=== PATIENT | male | born 1950 | race African-American/Black ===

== ENCOUNTER 2017-05-25 00:24 | Inpatient (IN) | payer MEDICARE ==
[2017-05-25] MEDS ORDERED: methylPREDNISolone SOD SUCC PF 125 MG/2 ML VIAL. (00:32)
[2017-05-25] MEDS ORDERED: ALBUTEROL SULFATE 2.5 MG/3 ML NEBU. (00:34)
[2017-05-25] MEDS: methylPREDNISolone SOD SUCC PF 125 MG/2 ML VIAL. IV (00:38)
[2017-05-25] MEDS: IV NORMAL SALINE 1000ML BAG 1,000 ML IV ×9 (01:00→23:50)
[2017-05-25 01:04] LABS: BASE EXCESS ABG 1 mmol/L (-3-3); BODY TEMP ABG 99.8 DEG; CORRECTED PCO2 ABG 48 mmHg; CORRECTED PH ABG 7.37; CORRECTED PO2 ABG 201 mmHg; HCO3 ABG 27 mmol/L (21-28); PCO2 ABG 47 mmHg (35-46); PH ABG 7.38 (7.35-7.45); PO2 ABG 197 mmHg (65-108); SAT O2 ABG 99 % (92-99)
[2017-05-25 01:09] LABS: BASO # 0.1 x10^3/uL (0.0-0.2); BASO % 0 % (0-3); EOS # 0.1 x10^3/uL (0.0-0.7); EOS % 1 % (0-3); HEMOGLOBIN 14.2 g/dL (13.0-17.5); LYMPH # 2.1 x10^3/uL (1.0-4.8); LYMPH % 11 % (24-48); MEAN CORPUSCULAR HEMOGLOBIN 27 pg (25-35); MEAN CORPUSCULAR HGB CONC 32 g/dL (31-37); MEAN CORPUSCULAR VOLUME 83 fL (79-100); MONO # 0.8 x10^3/uL (0.0-1.1); MONO % 4 % (0-9); NEUT % 85 % (31-73); PLATELET COUNT 180 x10^3/uL (140-400); RED BLOOD COUNT 5.31 x10^6/uL (4.30-5.70); RED CELL DISTRIBUTION WIDTH 14.3 % (11.5-14.5); WHITE BLOOD COUNT 20.2 x10^3/uL (4.0-11.0)
[2017-05-25] MEDS: ALBUTEROL SULFATE 2.5 MG/3 ML NEBU. CONT NEB (01:14)
[2017-05-25 01:40] LABS: ADD MAN DIFF? YES
[2017-05-25 01:46] LABS: ANION GAP 10 (6-14); BLOOD UREA NITROGEN 24 mg/dL (8-26); CALCIUM 8.4 mg/dL (8.5-10.1); CARBON DIOXIDE 29 mmol/L (21-32); CHLORIDE 106 mmol/L (98-107); CREATININE 1.8 mg/dL (0.7-1.3); GFR 45.5; GLUCOSE 118 mg/dL (70-99); POTASSIUM 4.3 mmol/L (3.5-5.1); SODIUM 145 mmol/L (136-145)
[2017-05-25 01:56] LABS: TROPONINI < 0.017 ng/mL (0.000-0.055)
[2017-05-25] MEDS: ACETAMINOPHEN 500 MG TABLET PO (02:09)
[2017-05-25 02:10] LABS: LACTIC ACID 2.2 mmol/L (0.4-2.0)
[2017-05-25] MEDS ORDERED: MORPHINE SULFATE 4 MG/ML DISP.SYRIN. IV (02:45)
[2017-05-25] MEDS ORDERED: ONDANSETRON PF 4 MG/2 ML VIAL. IV (02:45)
[2017-05-25 03:08] LABS: INFLUENZA A PATIENT NEGATIVE (NEGATIVE); INFLUENZA B PATIENT NEGATIVE (NEGATIVE); OBC FLU VALID
[2017-05-25] MEDS: AZITHRMYCN 500MG IVPB FOR OMNI 250 ML IV (05:58)
[2017-05-25 06:19] LABS: TROPONINI 0.023 ng/mL (0.000-0.055)
[2017-05-25 06:20] LABS: LACTIC ACID 1.7 mmol/L (0.4-2.0)
[2017-05-25 07:04] LABS: % EOS 1 % (0-5); % LYMPHS 10 % (24-48); % MONOS 9 % (0-10); % SEGS 80 % (35-66); PLT ESTIMATE ADEQUATE (ADEQUATE)
[2017-05-25 09:42] LABS: LACTIC ACID 2.8 mmol/L (0.4-2.0)
[2017-05-25] MEDS ORDERED: NON FORMULARY ITEM (Albuterol Sulfate (Proair Hfa Inhaler) 1 PUFF) INH (09:45)
[2017-05-25 09:50] LABS: TROPONINI < 0.017 ng/mL (0.000-0.055)
[2017-05-25] MEDS: BUDESONIDE 0.5 MG/2 ML NEBU. NEB ×2 (10:00→20:16)
[2017-05-25] MEDS ORDERED: ZOLPIDEM 5 MG TABLET. PO (10:00)
[2017-05-25] MEDS: TERAZOSIN 1 MG CAPSULE. PO ×2 (10:23→20:33)
[2017-05-25] MEDS: MELOXICAM 7.5 MG TABLET PO (10:24)
[2017-05-25] MEDS: AZITHROMYCIN 500 MG in IV NORMAL SALINE 250ML 250 ML IV (10:24)
[2017-05-25] MEDS: cefTRIAXone IV Push 1 GM VIAL. IVP (10:25)
[2017-05-25] MEDS: ALBUTEROL SULFATE 2.5 MG/3 ML NEBU. NEB ×3 (12:00→20:16)
[2017-05-25] MEDS: predniSONE 5 MG TABLET PO (12:25)
[2017-05-25] MEDS: QUEtiapine 100 MG TABLET. PO (20:33)
[2017-05-25] MEDS: LACTOBACILLUS RHAMNOSUS GG 1 CAPSULE. PO (20:33)
[2017-05-25] MEDS: GABAPENTIN 300 MG CAPSULE. PO (20:33)
[2017-05-25] MEDS ORDERED: NON FORMULARY ITEM (Budesonide (Pulmicort) 1 VIAL) NEB (21:00)
[2017-05-25] MEDS ORDERED: NON FORMULARY ITEM (Arformoterol Tartrate (Brovana) 1 VIAL) NEB (21:00)
[2017-05-26 04:40] LABS: ADD MAN DIFF? NO
[2017-05-26 05:36] LABS: BASO % 0 % (0-3); EOS % 0 % (0-3); HEMATOCRIT 34.4 % (39.0-53.0); HEMOGLOBIN 11.2 g/dL (13.0-17.5); LYMPH # 0.8 x10^3/uL (1.0-4.8); LYMPH % 3 % (24-48); MEAN CORPUSCULAR HEMOGLOBIN 27 pg (25-35); MEAN CORPUSCULAR HGB CONC 32 g/dL (31-37); MEAN CORPUSCULAR VOLUME 83 fL (79-100); MONO % 4 % (0-9); NEUT # 26.2 x10^3uL (1.8-7.7); NEUT % 94 % (31-73); PLATELET COUNT 134 x10^3/uL (140-400); RED BLOOD COUNT 4.16 x10^6/uL (4.30-5.70); RED CELL DISTRIBUTION WIDTH 14.3 % (11.5-14.5)
[2017-05-26 06:13] LABS: ANION GAP 9 (6-14); BLOOD UREA NITROGEN 21 mg/dL (8-26); CALCIUM 8.2 mg/dL (8.5-10.1); CARBON DIOXIDE 26 mmol/L (21-32); CHLORIDE 108 mmol/L (98-107); CREATININE 1.1 mg/dL (0.7-1.3); GFR 80.3; GLUCOSE 147 mg/dL (70-99); POTASSIUM 3.8 mmol/L (3.5-5.1); SODIUM 143 mmol/L (136-145)
[2017-05-26] MEDS: ALBUTEROL SULFATE 2.5 MG/3 ML NEBU. NEB ×3 (07:23→16:17)
[2017-05-26] MEDS: BUDESONIDE 0.5 MG/2 ML NEBU. NEB (07:23)
[2017-05-26] MEDS: TERAZOSIN 1 MG CAPSULE. PO (08:39)
[2017-05-26] MEDS: LACTOBACILLUS RHAMNOSUS GG 1 CAPSULE. PO (08:39)
[2017-05-26] MEDS: MELOXICAM 7.5 MG TABLET PO (08:40)
[2017-05-26] MEDS ORDERED: NON FORMULARY ITEM (Tiotropium Bromide (Spiriva) 1 CAP) IH (09:00)
[2017-05-26] MEDS: AZITHROMYCIN 500 MG in IV NORMAL SALINE 250ML 250 ML IV (10:06)
[2017-05-26] MEDS: cefTRIAXone IV Push 1 GM VIAL. IVP (10:06)
[2017-05-27] MEDS ORDERED: predniSONE 5 MG TABLET PO (09:00)
== END 2017-05-26 18:35 | disposition home or self-care (01) | DRG 871 ==
LOC: ER 00:24 → 2 NORTH 02:34
PROC: 5A09357 Assistance with Respiratory Ventilation, Less than 24 Consecutive Hours, Continuous Positive Airway Pressure (ICD-10-PCS; principal; 2017-05-25)
DX: A41.9 Sepsis, unspecified organism (principal); J15.6 Pneumonia due to other Gram-negative bacteria; J96.21 Acute and chronic respiratory failure with hypoxia; J44.0 Chronic obstructive pulmonary disease with (acute) lower respiratory infection; J44.1 Chronic obstructive pulmonary disease with (acute) exacerbation; F17.201 Nicotine dependence, unspecified, in remission; I10 Essential (primary) hypertension; Z83.3 Family history of diabetes mellitus; Z87.01 Personal history of pneumonia (recurrent)
CPT/HCPCS: 36415; 36600; 71045; 80048; 82805; 83605; 84484; 85007; 85025; 87040; 87804; 87804-59; 93005; 94640; 94660; 94760; 96365; 96374; 97162-GP; 97166-GO; 99285; 99285-25; J0456; J0690; J0696; J2930; J7030; J7050; J7512; J7613; J7626

== ENCOUNTER 2019-09-15 09:22 | Inpatient (IN) | payer MEDICARE, OTHER ==
[2019-09-15] VITALS (12 sets, daily range): BP systolic 104–162; BP diastolic 59–79
[~2019-09-15] VITALS: Ht 182.9 cm; Wt 85.2 kg
[~2019-09-15 09:22] MED LIST: ALBU2.5V8 INH; AMOX1TAB10 PO; APIX5TAB PO; ARFO15VI NEB; AZIT250T PO; BENZ-8 PO; BUDE0.253 NEB; DILT120C4 PO; DILT360C PO; GABA300C18 PO; GUAI5SYR PO; LACT1CAP19 PO; LEVO500T59 PO; LIDO700A21 TD; LOSA-73 PO; MELO15TA23 PO; MELO7.5T29 PO; PRED-220 PO; PRED2.5T PO; QUET100T4 PO; TERA2CAP3 PO; TIOT18CA IH; UNABLE MC; ZOLP12.52 PO
[2019-09-15] MEDS ORDERED: PIPERACILLIN/TAZOBACTAM 4.5 GM in IV NORMAL SALINE 100ML 100 ML IV ONE (09:30)
[2019-09-15] MEDS: IV NORMAL SALINE 1000ML BAG 1,000 ML IV SCH ×3 (09:40→09:47)
[2019-09-15 09:57] LABS: BASO % 0 % (0-3); EOS % 0 % (0-3); HEMATOCRIT 27.1 % (39.0-53.0); HEMOGLOBIN 9.1 g/dL (13.0-17.5); LYMPH # 0.6 x10^3/uL (1.0-4.8); LYMPH % 6 % (24-48); MEAN CORPUSCULAR HEMOGLOBIN 26 pg (25-35); MEAN CORPUSCULAR HGB CONC 34 g/dL (31-37); MEAN CORPUSCULAR VOLUME 78 fL (79-100); MONO # 0.4 x10^3/uL (0.0-1.1); MONO % 4 % (0-9); NEUT # 8.6 x10^3/uL (1.8-7.7); NEUT % 90 % (31-73); PLATELET COUNT 174 x10^3/uL (140-400); RED BLOOD COUNT 3.48 x10^6/uL (4.30-5.70); WHITE BLOOD COUNT 9.6 x10^3/uL (4.0-11.0)
[2019-09-15 10:07] LABS: PROTHROMBIN TIME PATIENT 14.6 SEC (11.7-14.0)
[2019-09-15 10:13] LABS: ALBUMIN 3.1 g/dL (3.4-5.0); ALBUMIN/GLOBULIN RATIO 0.8 (1.0-1.7); CALCIUM 7.9 mg/dL (8.5-10.1); CREATININE 1.5 mg/dL (0.7-1.3); GFR 55.8; POTASSIUM 3.4 mmol/L (3.5-5.1); TOTAL BILIRUBIN 0.2 mg/dL (0.2-1.0); TOTAL PROTEIN 6.9 g/dL (6.4-8.2)
--- NOTE | 2019-09-15 10:23 | RAD ---
EXAM: CHEST 1 VIEW History: Fever, cough COMPARISON: 01/20/2019 TECHNIQUE: Single portable radiograph of the chest FINDINGS: The cardiac silhouette is unremarkable. Interval removal of ET tube, feeding tube. Mild prominent bilateral interstitial lung markings likely congestive changes or interstitial infiltrates. Mild hyperinflated lungs. IMPRESSION: Mild prominent bilateral interstitial lung markings likely congestive changes or interstitial infiltrates similar to prior exam. Electronically signed by: Moustapha Butcher MD (09/15/2019 10:20 AM) [id number]
[2019-09-15] MEDS ORDERED: IBUPROFEN 200 MG TABLET. PO ONE (10:30)
[2019-09-15 10:47] LABS: BASE EXCESS COOX 1 mmol/L (-3-3); HCO3 COOX 25 mmol/L (21-28); METHEMOGLOBIN 0.7 % (0.0-1.9); OXYHEMOGLOBIN 88.5 %; PCO2 COOX 41 mmHg (35-46); PO2 COOX 60 mmHg (65-108); SAT O2 COOX 89 % (92-99)
--- NOTE | 2019-09-15 10:58 | PHYS DOC ---
Past Medical History Past Medical History: A-Fib, COPD, Hypertension Additional Past Medical Histor: intubation; [employer]. HOME 02 Past Surgical History: Appendectomy Additional Past Surgical Histo: hernia; shoulder Smoking Status: Former Smoker Alcohol Use: None Drug Use: None General Adult EDM: Chief Complaint: SHORTNESS OF BREATH HPI: HPI: Patient is a 69-year-old male patient at the [facility] with end-stage COPD on as much is 5 L of oxygen daily. He presents today secondary to fever and progressive shortness of breath. He started feeling poorly in the last couple of days was seen at the [facility] yesterday had a COVID-19 test at that time but was sent home with a diagnosis of pneumonia on antibiotics because he was oxygenating well. Today states he turned his oxygen up to his much is 9 L and still felt very short of breath and was directed to come to [facility] rather than the [facility]. Patient admits to having a fever as high as 104 at home. He has had no hemoptysis he denies orthopnea. He does state that with any exertion he feels more short of breath than usual. He denies any chest pain. [] Review of Systems: Review of Systems: Constitutional: Denies fever or chills. [] Eyes: Denies change in visual acuity. [] HENT: Denies nasal congestion or sore throat. [] Respiratory: Per HPI [] Cardiovascular: Denies chest pain or edema. [] GI: Denies abdominal pain, nausea, vomiting, bloody stools or diarrhea. [] : Denies dysuria. [] Musculoskeletal: Denies back pain or joint pain. [] Integument: Denies rash. [] Neurologic: Denies headache, focal weakness or sensory changes. [] Endocrine: Denies polyuria or polydipsia. [] Lymphatic: Denies swollen glands. [] Psychiatric: Denies depression or anxiety. [] Heart Score: Risk Factors: Risk Factors: DM, Current or recent (<one month) smoker, HTN, HLP, family history of CAD, obesity. Risk Scores: Score 0 - 3: 2.5% MACE over next 6 weeks - Discharge Home Score 4 - 6: 20.3% MACE over next 6 weeks - Admit for Clinical Observation Score 7 - 10: 72.7% MACE over next 6 weeks - Early Invasive Strategies Current Medications: Current Medications Medications (Trade) Dose Ordered Sig/Sim Start Time Stop Time Status Last Admin Dose Admin Ibuprofen (Motrin) 800 mg 1X ONCE 09/15/19 10:30 09/15/19 10:31 DC 09/15/19 10:33 800 MG Piperacillin Sod/ Tazobactam Sod 4.5 gm/Sodium Chloride 100 ml @ 200 mls/hr 1X ONCE 09/15/19 09:30 09/15/19 09:59 DC 09/15/19 09:40 200 MLS/HR Sodium Chloride 1,000 ml @ 2,580 mls/hr Q24M 09/15/19 09:27 09/15/19 10:27 DC 09/15/19 09:47 2,580 MLS/HR Allergies: Allergies: Allergies Coded Allergies Type Severity Reaction Last Updated Verified No Known Drug Allergies 05/25/17 No Physical Exam: PE: Constitutional: Well developed, well nourished, moderate respiratory distress, appears acutely ill [] HENT: Normocephalic, atraumatic, bilateral external ears normal, oropharynx moist, no oral exudates, nose normal. [] Eyes: PERRLA, EOMI, conjunctiva normal, no discharge. [] Neck: Normal range of motion, no tenderness, supple, no stridor. [] Cardiovascular:Heart rate regular rhythm, no murmur [] Lungs & Thorax: Coarse rhonchi throughout [] Abdomen: Bowel sounds normal, soft, no tenderness, no masses, no pulsatile masses. [] Skin: Warm, dry, no erythema, no rash. [] Back: No tenderness, no CVA tenderness. [] Extremities: No tenderness, no cyanosis, no clubbing, ROM intact, no edema. [] Neurologic: Alert and oriented X 3, normal motor function, normal sensory function, no focal deficits noted. [] Psychologic: Anxious [] Current Patient Data: Labs: Laboratory Tests Test 09/15/19 09:33 09/15/19 10:40 White Blood Count 9.6 x10^3/uL (4.0-11.0) Red Blood Count 3.48 x10^6/uL (4.30-5.70) L Hemoglobin 9.1 g/dL (13.0-17.5) L Hematocrit 27.1 % (39.0-53.0) L Mean Corpuscular Volume 78 fL (79-100) L Mean Corpuscular Hemoglobin 26 pg (25-35) Mean Corpuscular Hemoglobin Concent 34 g/dL (31-37) Red Cell Distribution Width 17.0 % (11.5-14.5) H Platelet Count 174 x10^3/uL (140-400) Neutrophils (%) (Auto) 90 % (31-73) H Lymphocytes (%) (Auto) 6 % (24-48) L Monocytes (%) (Auto) 4 % (0-9) Eosinophils (%) (Auto) 0 % (0-3) Basophils (%) (Auto) 0 % (0-3) Neutrophils # (Auto) 8.6 x10^3/uL (1.8-7.7) H Lymphocytes # (Auto) 0.6 x10^3/uL (1.0-4.8) L Monocytes # (Auto) 0.4 x10^3/uL (0.0-1.1) Eosinophils # (Auto) 0.0 x10^3/uL (0.0-0.7) Basophils # (Auto) 0.0 x10^3/uL (0.0-0.2) Platelet Estimate Pending Prothrombin Time 14.6 SEC (11.7-14.0) H Prothrombin Time INR 1.2 (0.8-1.1) H Activated Partial Thromboplast Time 32 SEC (24-38) Sodium Level 146 mmol/L (136-145) H Potassium Level 3.4 mmol/L (3.5-5.1) L Chloride Level 107 mmol/L (98-107) Carbon Dioxide Level 28 mmol/L (21-32) Anion Gap 11 (6-14) Blood Urea Nitrogen 27 mg/dL (8-26) H Creatinine 1.5 mg/dL (0.7-1.3) H Estimated GFR (Cockcroft-Gault) 55.8 BUN/Creatinine Ratio 18 (6-20) Glucose Level 122 mg/dL (70-99) H Lactic Acid Level 1.5 mmol/L (0.4-2.0) Calcium Level 7.9 mg/dL (8.5-10.1) L Total Bilirubin 0.2 mg/dL (0.2-1.0) Aspartate Amino Transferase (AST) 31 U/L (15-37) Alanine Aminotransferase (ALT) 36 U/L (16-63) Alkaline Phosphatase 97 U/L (46-116) Creatine Kinase 283 U/L (39-308) Total Protein 6.9 g/dL (6.4-8.2) Albumin 3.1 g/dL (3.4-5.0) L Albumin/Globulin Ratio 0.8 (1.0-1.7) L Procalcitonin 0.32 ng/mL (0.00-0.10) H O2 Saturation 89 % (92-99) L Arterial Blood pH 7.41 (7.35-7.45) Arterial Blood pCO2 at Patient Temp 41 mmHg (35-46) Arterial Blood pO2 at Patient Temp 60 mmHg (65-108) L Arterial Blood HCO3 25 mmol/L (21-28) Arterial Blood Base Excess 1 mmol/L (-3-3) Oxyhemoglobin 88.5 % Methemoglobin 0.7 % (0.0-1.9) Carbon Monoxide, Quantitative 0.3 % (0.0-1.9) FiO2 4 lpm nc Laboratory Tests 09/15/19 09:33 Laboratory Tests 09/15/19 09:33 Vital Signs: Vital Signs Date Time Temp Pulse Resp B/P (MAP) Pulse Ox O2 Delivery O2 Flow Rate FiO2 09/15/19 09:22 102.7 140 28 152/66 (94) 91 Nasal Cannula 4.0 102.7 EKG: EKG: EKG: Sinus tachycardia rate of [address]-T changes [] Radiology/Procedures: Radiology/Procedures: []PROCEDURE: PORTABLE CHEST 1V EXAM: CHEST 1 VIEW History: Fever, cough COMPARISON: 01/20/2019 TECHNIQUE: Single portable radiograph of the chest FINDINGS: The cardiac silhouette is unremarkable. Interval removal of ET tube, feeding tube. Mild prominent bilateral interstitial lung markings likely congestive changes or interstitial infiltrates. Mild hyperinflated lungs. IMPRESSION: Mild prominent bilateral interstitial lung markings likely congestive changes or interstitial infiltrates similar to prior exam. Course & Med Decision Making: Course & Med Decision Making Pertinent Labs and Imaging studies reviewed. (See chart for details) [ED course: Evaluation reveals a 69-year-old male with a recent diagnosis of pneumonia and hypoxia. His symptoms became worse overnight. On arrival here he was treated as a septic pneumonia type patient was given broad-spectrum antibiotics and IV fluids. After his chest x-ray was done revealed a picture more consistent with either congestive heart failure or COVID-19. Patient was maintained on 5 L of oxygen by nasal cannula with any exertion he did desaturate however when he remained still his oxygen was in the low 90s. I talked with the hospitalist who agreed to accept the patient for admission to the ICU CRITICAL CARE: Time spent was 35 minutes. This includes medical management, evaluation, reevaluation, discussion with consultants and family. Critical Care does NOT include time spent on separately billed procedures.] Dragon Disclaimer: Dragon Disclaimer: This electronic medical record was generated, in whole or in part, using a voice recognition dictation system. Departure Departure Impression: Primary Impression: COVID-19 Disposition: 09 ADMITTED INPATIENT Admitting Physician: GERALDINE Condition: GUARDED Referrals: UNKNOWN PCP NAME (PCP) Justicifation of Admission Dx: Justifications for Admission: Justification of Admission Dx: Yes Respiratory Failure: Severe Resp Distress DALE JEFFERSON DO Sep 15, 2019 10:58
[2019-09-15] MEDS ORDERED: ONDANSETRON PF 4 MG/2 ML VIAL. IV PRN (11:00)
[2019-09-15] MEDS ORDERED: ACETAMINOPHEN 325 MG TABLET. PO PRN (11:00)
--- NOTE | 2019-09-15 11:28 | PDOC1 ---
History and Physical Date of Admission Date of Admission DATE: 09/15/19 TIME: 11:27 Identification/Chief Complaint Chief Complaint SEEN IN ER WITH HIGH FEVER , 69-year-old male patient at the [facility] with end- stage COPD on as much is 5 L of oxygen daily. presented today secondary to fever and progressive shortness of breath. He started feeling poorly in the last couple of days was seen at the [place] yesterday had a COVID-19 test at that time but was sent home with a diagnosis of pneumonia on antibiotics because he was oxygenating well. states he turned his oxygen up to his much is 9 L and still felt very short of breath and was directed to come to [facility] rather than the [place]. admits to having a fever as high as 104 at home. He has had no hemoptysis he denies orthopnea. // with any exertion he feels more short of breath than usual. Past Medical History Past Medical History Past Medical History Past Medical History: A-Fib, COPD, Hypertension Additional Past Medical Histor: intubation; [employer]. HOME 02 Past Surgical History: Appendectomy Additional Past Surgical Histo: hernia; shoulder Smoking Status: Former Smoker Alcohol Use: None Drug Use: None FHX COPD Cardiovascular: HTN Pulmonary: COPD, Pneumonia Psych: Anxiety, Depression, Other Musculoskeletal: Osteoarthritis Past Surgical History Past Surgical History: Appendectomy, Hernia Repair Family History Family History: Cancer, Coronary Artery Disease, High Cholestrol Social History Smoke: No ALCOHOL: none Drugs: None Current Problem List Problem List Problems Medical Problems: (1) COVID-19 Status: Acute Current Medications Current Medications Current Medications Piperacillin Sod/ Tazobactam Sod 4.5 gm/Sodium Chloride 100 ml @ 200 mls/hr 1X ONCE IV Last administered on 09/15/19at 09:40; Start 09/15/19 at 09:30; Stop 09/15/19 at 09:59; Status DC Sodium Chloride 1,000 ml @ 2,580 mls/hr Q24M IV Last administered on 09/15/19at 09:47; Start 09/15/19 at 09:27; Stop 09/15/19 at 10:27; Status DC Ibuprofen (Motrin) 800 mg 1X ONCE PO Last administered on 09/15/19at 10:33; Start 09/15/19 at 10:30; Stop 09/15/19 at 10:31; Status DC Ondansetron HCl (Zofran) 4 mg PRN Q8HRS PRN IV NAUSEA/VOMITING; Start 09/15/19 at 11:00; Stop 09/16/19 at 10:59 Acetaminophen (Tylenol) 650 mg PRN Q4HRS PRN PO FEVER > 100.3'F; Start 09/15/19 at 11:00; Stop 09/16/19 at 10:59 Albuterol/ Ipratropium (Duoneb) 3 ml RTQID NEB ; Start 09/15/19 at 12:00; Stop 09/16/19 at 11:59 Active Scripts Active Cardizem Cd (Diltiazem Hcl) 360 Mg Cap.er.24h 1 Cap PO DAILY Eliquis (Apixaban) 5 Mg Tablet 5 Mg PO BID 60 Days Lidocaine PATCH (Lidocaine) 1 Each Adh..patch 1 Patch TD DAILY Cozaar (Losartan Potassium) 50 Mg Tablet 50 Mg PO BID Amox Tr-K Clv 500-125 Mg Tab (Amoxicillin/Potassium Clav) 1 Each Tablet 1 Tab PO BID Culturelle (Lactobacillus Rhamnosus Gg) 1 Each Cap.sprink 1 Cap PO BID 30 Days Guaifenesin Dm Syrup (Guaifenesin/Dextromethorphan) 5 Ml Syrup 10 Ml PO PRN Q6HRS PRN 10 Days Benzonatate 100 Mg Capsule 100 Mg PO [id number] 30 Days Reported Pulmicort (Budesonide) 0.25 Mg/2 Ml Ampul.neb 1 Vial NEB BID Spiriva (Tiotropium [place]) 18 Mcg Cap.w.dev 1 Cap IH DAILY Proair Hfa Inhaler (Albuterol Sulfate) 8.5 Gm Hfa.aer.ad 1 Puff INH PRN Q6HRS PRN Brovana (Arformoterol Tartrate) 15 Mcg/2 Ml Vial.neb 1 Vial NEB BID Gabapentin (Gabapentin) 300 Mg Capsule 300 Mg PO HS Terazosin Hcl 2 Mg Capsule 4 Cap PO QHS Seroquel (Quetiapine Fumarate) 100 Mg Tablet 1 Tab PO QHS Ambien Cr (Zolpidem Tartrate) 12.5 Mg Tab.mphase 0.5 Tab PO QHS Allergies Allergies: Coded Allergies: No Known Drug Allergies (Unverified , 05/25/17) ROS Review of System fever // chills. pos [] Eyes: Denies change in visual acuity. [] HENT: Denies nasal congestion or sore throat. [] Respiratory: Per HPI [] Cardiovascular: Denies chest pain or edema. [] GI: Denies abdominal pain, nausea, vomiting, bloody stools or diarrhea. [] : Denies dysuria. [] Musculoskeletal: Denies back pain or joint pain. [] Integument: Denies rash. [] Neurologic: Denies headache, focal weakness or sensory changes. [] Endocrine: Denies polyuria or polydipsia. [] Lymphatic: Denies swollen glands. [] Psychiatric: Denies depression or anxiety. [] 14 pt ros otherwise neg Respiratory: YES: Cough, Shortness of breath, SOB with excertion Physical Exam Physical Exam Constitutional: Well developed, well nourished, moderate respiratory distress, appears acutely ill [] HENT: Normocephalic, atraumatic, bilateral external ears normal, oropharynx moist, no oral exudates, nose normal. [] Eyes: PERRLA, EOMI, conjunctiva normal, no discharge. [] Neck: Normal range of motion, no tenderness, supple, no stridor. [] Cardiovascular:Heart rate regular rhythm, no murmur [] Lungs & Thorax: Coarse rhonchi throughout [] Abdomen: Bowel sounds normal, soft, no tenderness, no masses, no pulsatile masses. [] Skin: Warm, dry, no erythema, no rash. [] Back: No tenderness, no CVA tenderness. [] Extremities: No tenderness, no cyanosis, no clubbing, ROM intact, no edema. [] Neurologic: Alert and oriented X 3, normal motor function, normal sensory function, no focal deficits noted. [] Psychologic: Anxious [] General: Alert, Oriented X3, Cooperative, moderate distress Breasts: Not examined Abdomen: Soft Rectal Exam: not examined PELVIC: Examination not indicated Extremities: No cyanosis Neuro: Normal speech, Cranial nerves 3-12 NL Vitals Vitals Vital Signs Date Time Temp Pulse Resp B/P (MAP) Pulse Ox O2 Delivery O2 Flow Rate FiO2 09/15/19 10:52 120 24 174/77 (109) 93 Nasal Cannula 5.0 09/15/19 09:22 102.7 102.7 Labs Labs Laboratory Tests Test 7/19/20 09:33 09/15/19 10:40 White Blood Count 9.6 x10^3/uL (4.0-11.0) Red Blood Count 3.48 x10^6/uL (4.30-5.70) Hemoglobin 9.1 g/dL (13.0-17.5) Hematocrit 27.1 % (39.0-53.0) Mean Corpuscular Volume 78 fL (79-100) Mean Corpuscular Hemoglobin 26 pg (25-35) Mean Corpuscular Hemoglobin Concent 34 g/dL (31-37) Red Cell Distribution Width 17.0 % (11.5-14.5) Platelet Count 174 x10^3/uL (140-400) Neutrophils (%) (Auto) 90 % (31-73) Lymphocytes (%) (Auto) 6 % (24-48) Monocytes (%) (Auto) 4 % (0-9) Eosinophils (%) (Auto) 0 % (0-3) Basophils (%) (Auto) 0 % (0-3) Neutrophils # (Auto) 8.6 x10^3/uL (1.8-7.7) Lymphocytes # (Auto) 0.6 x10^3/uL (1.0-4.8) Monocytes # (Auto) 0.4 x10^3/uL (0.0-1.1) Eosinophils # (Auto) 0.0 x10^3/uL (0.0-0.7) Basophils # (Auto) 0.0 x10^3/uL (0.0-0.2) Prothrombin Time 14.6 SEC (11.7-14.0) Prothromb Time International Ratio 1.2 (0.8-1.1) Activated Partial Thromboplast Time 32 SEC (24-38) Sodium Level 146 mmol/L (136-145) Potassium Level 3.4 mmol/L (3.5-5.1) Chloride Level 107 mmol/L (98-107) Carbon Dioxide Level 28 mmol/L (21-32) Anion Gap 11 (6-14) Blood Urea Nitrogen 27 mg/dL (8-26) Creatinine 1.5 mg/dL (0.7-1.3) Estimated GFR (Cockcroft-Gault) 55.8 BUN/Creatinine Ratio 18 (6-20) Glucose Level 122 mg/dL (70-99) Lactic Acid Level 1.5 mmol/L (0.4-2.0) Calcium Level 7.9 mg/dL (8.5-10.1) Total Bilirubin 0.2 mg/dL (0.2-1.0) Aspartate Amino Transf (AST/SGOT) 31 U/L (15-37) Alanine Aminotransferase (ALT/SGPT) 36 U/L (16-63) Alkaline Phosphatase 97 U/L (46-116) Creatine Kinase 283 U/L (39-308) Total Protein 6.9 g/dL (6.4-8.2) Albumin 3.1 g/dL (3.4-5.0) Albumin/Globulin Ratio 0.8 (1.0-1.7) Procalcitonin 0.32 ng/mL (0.00-0.10) O2 Saturation 89 % (92-99) Arterial Blood pH 7.41 (7.35-7.45) Arterial Blood pCO2 at Patient Temp 41 mmHg (35-46) Arterial Blood pO2 at Patient Temp 60 mmHg (65-108) Arterial Blood HCO3 25 mmol/L (21-28) Arterial Blood Base Excess 1 mmol/L (-3-3) Oxyhemoglobin 88.5 % Methemoglobin 0.7 % (0.0-1.9) Carbon Monoxide, Quantitative 0.3 % (0.0-1.9) FiO2 4 lpm nc Laboratory Tests Test 09/15/19 09:33 09/15/19 10:40 White Blood Count 9.6 x10^3/uL (4.0-11.0) Red Blood Count 3.48 x10^6/uL (4.30-5.70) Hemoglobin 9.1 g/dL (13.0-17.5) Hematocrit 27.1 % (39.0-53.0) Mean Corpuscular Volume 78 fL (79-100) Mean Corpuscular Hemoglobin 26 pg (25-35) Mean Corpuscular Hemoglobin Concent 34 g/dL (31-37) Red Cell Distribution Width 17.0 % (11.5-14.5) Platelet Count 174 x10^3/uL (140-400) Neutrophils (%) (Auto) 90 % (31-73) Lymphocytes (%) (Auto) 6 % (24-48) Monocytes (%) (Auto) 4 % (0-9) Eosinophils (%) (Auto) 0 % (0-3) Basophils (%) (Auto) 0 % (0-3) Neutrophils # (Auto) 8.6 x10^3/uL (1.8-7.7) Lymphocytes # (Auto) 0.6 x10^3/uL (1.0-4.8) Monocytes # (Auto) 0.4 x10^3/uL (0.0-1.1) Eosinophils # (Auto) 0.0 x10^3/uL (0.0-0.7) Basophils # (Auto) 0.0 x10^3/uL (0.0-0.2) Prothrombin Time 14.6 SEC (11.7-14.0) Prothromb Time International Ratio 1.2 (0.8-1.1) Activated Partial Thromboplast Time 32 SEC (24-38) Sodium Level 146 mmol/L (136-145) Potassium Level 3.4 mmol/L (3.5-5.1) Chloride Level 107 mmol/L (98-107) Carbon Dioxide Level 28 mmol/L (21-32) Anion Gap 11 (6-14) Blood Urea Nitrogen 27 mg/dL (8-26) Creatinine 1.5 mg/dL (0.7-1.3) Estimated GFR (Cockcroft-Gault) 55.8 BUN/Creatinine Ratio 18 (6-20) Glucose Level 122 mg/dL (70-99) Lactic Acid Level 1.5 mmol/L (0.4-2.0) Calcium Level 7.9 mg/dL (8.5-10.1) Total Bilirubin 0.2 mg/dL (0.2-1.0) Aspartate Amino Transf (AST/SGOT) 31 U/L (15-37) Alanine Aminotransferase (ALT/SGPT) 36 U/L (16-63) Alkaline Phosphatase 97 U/L (46-116) Creatine Kinase 283 U/L (39-308) Total Protein 6.9 g/dL (6.4-8.2) Albumin 3.1 g/dL (3.4-5.0) Albumin/Globulin Ratio 0.8 (1.0-1.7) Procalcitonin 0.32 ng/mL (0.00-0.10) O2 Saturation 89 % (92-99) Arterial Blood pH 7.41 (7.35-7.45) Arterial Blood pCO2 at Patient Temp 41 mmHg (35-46) Arterial Blood pO2 at Patient Temp 60 mmHg (65-108) Arterial Blood HCO3 25 mmol/L (21-28) Arterial Blood Base Excess 1 mmol/L (-3-3) Oxyhemoglobin 88.5 % Methemoglobin 0.7 % (0.0-1.9) Carbon Monoxide, Quantitative 0.3 % (0.0-1.9) FiO2 4 lpm nc Images Images REASON: fever, cough, soa PROCEDURE: PORTABLE CHEST 1V EXAM: CHEST 1 VIEW History: Fever, cough COMPARISON: 01/20/2019 TECHNIQUE: Single portable radiograph of the chest FINDINGS: The cardiac silhouette is unremarkable. Interval removal of ET tube, feeding tube. Mild prominent bilateral interstitial lung markings likely congestive changes or interstitial infiltrates. Mild hyperinflated lungs. IMPRESSION: Mild prominent bilateral interstitial lung markings likely congestive changes or interstitial infiltrates similar to prior exam. Electronically signed by: Moustapha Butcher MD (09/15/2019 10:20 AM) [id number] DICTATED and SIGNED BY: MOUSTAPHA BUTCHER MD DATE: 09/15/19 1020 VTE Prophylaxis Ordered VTE Prophylaxis Devices: Yes VTE Pharmacological Prophylaxi: Yes Assessment/Plan Assessment/Plan IMPRESSION: prominent bilateral interstitial lung markings likely congestive changes or interstitial infiltrates similar to prior exam. POSSIBLE COVID-19 VIRAL SYNDROME acute ON CHRONIC HYPOXIC RESPIRATORY FAILURE END STAGE COPD PLAN ADMIT ICU PULM CONSULT DVT PROPHYLAXIS cardiology consult o2 support 38 min cc time Justicifation of Admission Dx: Justifications for Admission: Justification of Admission Dx: Yes Respiratory Failure: Severe Resp Distress LARRY DUNN MD Sep 15, 2019 11:28
[2019-09-15 11:35] LABS: BILIRUBIN,URINE NEGATIVE (NEG); CLARITY,URINE CLEAR; NITRITE,URINE NEGATIVE (NEG); PROTEIN,URINE 30 mg/dL (NEG-TRACE); UROBILINOGEN,URINE 0.2 mg/dL (0.2 mg/dL)
[2019-09-15 11:55] LABS: BACTERIA,URINE FEW /HPF (0-FEW); COLOR,URINE STRAW; RBC,URINE OCC /HPF (0-2); SQUAMOUS EPITHELIAL CELL,UR FEW /LPF; WBC,URINE OCC /HPF (0-4)
[2019-09-15] MEDS ORDERED: IPRATRPIUM/ALBUTEROL 0.5/2.5MG 3 ML NEBU. NEB SCH ×2 (12:00→20:00)
[2019-09-15 12:08] LABS: % BANDS 7 % (0-9); % LYMPHS 6 % (24-48); % MONOS 6 % (0-10); % SEGS 81 % (35-66); PLT ESTIMATE ADEQUATE (ADEQUATE)
--- NOTE | 2019-09-15 12:30 | NUR ---
Pt to room 113 from ED per cart. Pt A&Ox3. O2@ 5L. Pt needs HOB elevated. VSS. Pt has phone, watch, and clothes in room. Will monitor.
[2019-09-15] MEDS ORDERED: ALBUTEROL SULFATE 2.5 MG/3 ML NEBU. NEB PRN (15:30)
--- NOTE | 2019-09-15 16:00 | NUR ---
Pt in Afib - rate elevating to 170's. Order received for consult to cardiology. Dr. Hatch called and orders received for Dig IV.
[2019-09-15] MEDS: DIGOXIN IV 500 MCG/2 ML AMPUL. IV SCH ×3 (16:08→22:06)
[2019-09-15] MEDS ORDERED: ALBUTEROL SULFATE 2.5 MG/3 ML NEBU. INH PRN (16:45)
[2019-09-15] MEDS ORDERED: guaiFENesin DM 200MG/20MG 10 ML SYRUP PO PRN (16:45)
[2019-09-15] MEDS ORDERED: IPRATRPIUM/ALBUTEROL 0.5/2.5MG 3 ML NEBU. NEB PRN (17:15)
[2019-09-15] MEDS ORDERED: BUDESONIDE 0.5 MG/2 ML NEBU. NEB PRN (17:15)
[2019-09-15] MEDS ORDERED: PIP/TAZO PER PHARMACY MC PRN (18:45)
[2019-09-15] MEDS ORDERED: 0.9 % SODIUM CHLORIDE 10 ML DISP.SYRIN. IV PRN (19:00)
[2019-09-15] MEDS ORDERED: ONDANSETRON PF 4 MG/2 ML VIAL. IVP PRN (19:00)
[2019-09-15] MEDS ORDERED: MAG HYDROX/ALUMINUM HYD/SIMETH 30 ML ORAL.SUSP PO PRN (19:00)
[2019-09-15] MEDS ORDERED: HYDROcodone/APAP 5/325MG 1 TAB TABLET PO PRN (19:00)
[2019-09-15] MEDS ORDERED: HYDROmorphone 2 MG/ML VIAL IV PRN (19:00)
[2019-09-15] MEDS ORDERED: BISACODYL 10 MG SUPP.RECT. PR PRN (19:00)
[2019-09-15] MEDS ORDERED: BUDESONIDE 0.5 MG/2 ML NEBU. NEB SCH (20:00)
[2019-09-15] MEDS: PIPERACILLIN/TAZOBACTAM 4.5 GM in IV NORMAL SALINE 100ML 100 ML IV SCH (20:09)
[2019-09-15] MEDS: methylPREDNISolone SOD SUCC PF 40 MG/ML VIAL. IV SCH (20:09)
[2019-09-15] MEDS: APIXABAN 5 MG TABLET. PO SCH (20:10)
[2019-09-15] MEDS: FAMOTIDINE 20 MG/2 ML VIAL IVP SCH (20:10)
[2019-09-15] MEDS: LACTOBACILLUS RHAMNOSUS GG 1 CAPSULE. PO SCH (20:10)
[2019-09-15] MEDS: LOSARTAN POTASSIUM 50 MG TABLET. PO SCH (20:10)
[2019-09-15] MEDS: BENZONATATE 100 MG CAPSULE. PO SCH (20:11)
[2019-09-15] MEDS: DOCUSATE SODIUM 100 MG CAPSULE. PO SCH (20:12)
[2019-09-15] MEDS ORDERED: GABAPENTIN 300 MG CAPSULE. PO SCH (21:00)
[2019-09-15] MEDS ORDERED: QUEtiapine 100 MG TABLET. PO SCH (21:00)
[2019-09-15] MEDS ORDERED: PATCH REMOVAL. MC SCH (21:00)
[2019-09-15] MEDS ORDERED: TERAZOSIN 1 MG CAPSULE. PO SCH (21:00)
[2019-09-15] MEDS ORDERED: NON FORMULARY ITEM (Arformoterol Tartrate (Brovana) 1 VIAL) NEB SCH (21:00)
[2019-09-16] VITALS (11 sets, daily range): BP systolic 141–161; BP diastolic 64–87
[2019-09-16] MEDS: PIPERACILLIN/TAZOBACTAM 4.5 GM in IV NORMAL SALINE 100ML 100 ML IV SCH ×3 (00:01→12:15)
[2019-09-16] MEDS: methylPREDNISolone SOD SUCC PF 40 MG/ML VIAL. IV SCH (05:49)
--- NOTE | 2019-09-16 08:33 | PDOC2 ---
FARSHAD SHERMAN CAGE MANAGER 09/16/19 0833: CARDIAC CONSULT DATE OF CONSULT Date of Consult DATE: 09/16/19 TIME: 08:23 REASON FOR CONSULT Reason for Consult: AFIB REFERRING PHYSICIAN Referring Physician: Dr. Garcia HISTORY OF PRESENT ILLNESS HISTORY OF PRESENT ILLNESS This is a 69 yo male who presented secondary to shortness of breath and fevers. Was seen at the [facility] and treated for PNA over the weekend. Dyspnea progressed so he came to [facility] for further evaluation and treatment. Presently denies any chest pain, palpitations, dizziness, diaphoresis, or nausea/vomiting. Breathing has improved. COVID is pending. PAST MEDICAL HISTORY Past Medical History Cardiovascular: HTN, AFIB, CHF Pulmonary: COPD, Pneumonia Psych: Anxiety, Depression, Other (PTSD) Musculoskeletal: Osteoarthritis Endocrine; Hyperthyroidism PAST SURGICAL HISTORY Past Surgical History: Appendectomy, Hernia Repair FAMILY HISTORY Family History Cancer (prostate ), Coronary Artery Disease (father ) SOCIAL HISTORY Social History Smoke: Quit (3 years ago; uses e-cigarette ) ALCOHOL: none Drugs: None Lives: with Family CURRENT MEDICATIONS CURRENT MEDICATIONS Current Medications Medications (Trade) Dose Ordered Sig/Sim Route PRN Reason Start Time Stop Time Status Last Admin Dose Admin Piperacillin Sod/ Tazobactam Sod 4.5 gm/Sodium Chloride 100 ml @ 200 mls/hr 1X ONCE IV 09/15/19 09:30 09/15/19 09:59 DC 09/15/19 09:40 Sodium Chloride 1,000 ml @ 2,580 mls/hr Q24M IV 09/15/19 09:27 09/15/19 10:27 DC 09/15/19 09:47 Ibuprofen (Motrin) 800 mg 1X ONCE PO 09/15/19 10:30 09/15/19 10:31 DC 09/15/19 10:33 Digoxin (Lanoxin) 250 mcg 1600,1700,2200 IV 09/15/19 16:00 09/15/19 22:01 DC 09/15/19 22:06 Apixaban (Eliquis) 5 mg BID PO 09/15/19 21:00 09/15/19 20:10 Benzonatate (Tessalon Perle) 100 mg [id number] PO 09/15/19 21:00 09/15/19 20:11 Gabapentin (Neurontin) 300 mg HS PO 09/15/19 21:00 09/15/19 20:11 Lactobacillus Rhamnosus (Culturelle) 1 cap BID PO 09/15/19 21:00 09/15/19 20:10 Losartan Potassium (Cozaar) 50 mg BID PO 09/15/19 21:00 09/15/19 20:10 Quetiapine Fumarate (SEROquel) 100 mg QHS PO 09/15/19 21:00 09/15/19 20:11 Terazosin HCl (Hytrin) 4 mg QHS PO 09/15/19 21:00 09/15/19 20:11 Famotidine (Pepcid Vial) 20 mg BID IVP 09/15/19 21:00 09/15/19 20:10 Methylprednisolone Sodium Succinate (SOLU-Medrol 40MG VIAL) 60 mg Q8HRS IV 09/15/19 19:00 09/16/19 05:49 Piperacillin Sod/ Tazobactam Sod 4.5 gm/Sodium Chloride 100 ml @ 200 mls/hr Q6HRS IV 09/15/19 19:00 09/16/19 05:50 ALLERGIES ALLERGIES: Coded Allergies: No Known Drug Allergies (Unverified , 05/25/17) ROS Review of System 14 point ROS conducted with pertinent positives noted above in hPI PHYSICAL EXAM General: Alert, Oriented X3, Cooperative, No acute distress HEENT: Atraumatic, Mucous membr. moist/pink Lungs: Other (diminished bases) Heart: Regular rate Abdomen: Soft Extremities: No edema, Normal pulses Skin: No significant lesion Neuro: Normal speech, Sensation intact Psych/Mental Status: Mental status NL, Mood NL MUSCULOSKELETAL: Osteoarthritic changes both hands VITALS/I&O VITALS/I&O: Vital Signs Date Time Temp Pulse Resp B/P (MAP) Pulse Ox O2 Delivery O2 Flow Rate FiO2 09/16/19 07:00 78 18 159/74 (102) 98 Nasal Cannula 3.0 09/16/19 05:00 98.5 98.5 I & O 09/15/19 09/15/19 09/16/19 15:00 23:00 07:00 Intake Total 3680 ml 100 ml 200 ml Output Total 300 ml 1000 ml 350 ml Balance 3380 ml -900 ml -150 ml LABS Lab: Laboratory Tests Test 09/15/19 09:33 09/15/19 10:40 09/15/19 11:00 09/15/19 13:20 White Blood Count 9.6 x10^3/uL (4.0-11.0) Red Blood Count 3.48 x10^6/uL (4.30-5.70) L Hemoglobin 9.1 g/dL (13.0-17.5) L Hematocrit 27.1 % (39.0-53.0) L Mean Corpuscular Volume 78 fL (79-100) L Mean Corpuscular Hemoglobin 26 pg (25-35) Mean Corpuscular Hemoglobin Concent 34 g/dL (31-37) Red Cell Distribution Width 17.0 % (11.5-14.5) H Platelet Count 174 x10^3/uL (140-400) Neutrophils (%) (Auto) 90 % (31-73) H Lymphocytes (%) (Auto) 6 % (24-48) L Monocytes (%) (Auto) 4 % (0-9) Eosinophils (%) (Auto) 0 % (0-3) Basophils (%) (Auto) 0 % (0-3) Neutrophils # (Auto) 8.6 x10^3/uL (1.8-7.7) H Lymphocytes # (Auto) 0.6 x10^3/uL (1.0-4.8) L Monocytes # (Auto) 0.4 x10^3/uL (0.0-1.1) Eosinophils # (Auto) 0.0 x10^3/uL (0.0-0.7) Basophils # (Auto) 0.0 x10^3/uL (0.0-0.2) Segmented Neutrophils % 81 % (35-66) H Band Neutrophils % 7 % (0-9) Lymphocytes % 6 % (24-48) L Monocytes % 6 % (0-10) Platelet Estimate Adequate (ADEQUATE) Prothrombin Time 14.6 SEC (11.7-14.0) H Prothrombin Time INR 1.2 (0.8-1.1) H Activated Partial Thromboplast Time 32 SEC (24-38) Sodium Level 146 mmol/L (136-145) H Potassium Level 3.4 mmol/L (3.5-5.1) L Chloride Level 107 mmol/L (98-107) Carbon Dioxide Level 28 mmol/L (21-32) Anion Gap 11 (6-14) Blood Urea Nitrogen 27 mg/dL (8-26) H Creatinine 1.5 mg/dL (0.7-1.3) H Estimated GFR (Cockcroft-Gault) 55.8 BUN/Creatinine Ratio 18 (6-20) Glucose Level 122 mg/dL (70-99) H Lactic Acid Level 1.5 mmol/L (0.4-2.0) Calcium Level 7.9 mg/dL (8.5-10.1) L Total Bilirubin 0.2 mg/dL (0.2-1.0) Aspartate Amino Transferase (AST) 31 U/L (15-37) Alanine Aminotransferase (ALT) 36 U/L (16-63) Alkaline Phosphatase 97 U/L (46-116) Creatine Kinase 283 U/L (39-308) Troponin I Quantitative < 0.017 ng/mL (0.000-0.055) 0.058 ng/mL (0.000-0.055) WT-Suz-J-Type Natriuretic Peptide 45 pg/mL (0-124) Total Protein 6.9 g/dL (6.4-8.2) Albumin 3.1 g/dL (3.4-5.0) L Albumin/Globulin Ratio 0.8 (1.0-1.7) L Procalcitonin 0.32 ng/mL (0.00-0.10) H O2 Saturation 89 % (92-99) L Arterial Blood pH 7.41 (7.35-7.45) Arterial Blood pCO2 at Patient Temp 41 mmHg (35-46) Arterial Blood pO2 at Patient Temp 60 mmHg (65-108) L Arterial Blood HCO3 25 mmol/L (21-28) Arterial Blood Base Excess 1 mmol/L (-3-3) Oxyhemoglobin 88.5 % Methemoglobin 0.7 % (0.0-1.9) Carbon Monoxide, Quantitative 0.3 % (0.0-1.9) FiO2 4 lpm ia Urine Collection Type Unknown Urine Color Straw Urine Clarity Clear Urine pH 6.0 (<5.0-8.0) Urine Specific [place] 1.015 (1.000-1.030) Urine Protein 30 mg/dL (NEG-TRACE) Urine Glucose (UA) Negative mg/dL (NEG) Urine Ketones (Stick) Negative mg/dL (NEG) Urine Blood Small (NEG) Urine Nitrite Negative (NEG) Urine Bilirubin Negative (NEG) Urine Urobilinogen Dipstick 0.2 mg/dL (0.2 mg/dL) Urine Leukocyte Esterase Negative (NEG) Urine RBC Occ /HPF (0-2) Urine WBC Occ /HPF (0-4) Urine Squamous Epithelial Cells Few /LPF Urine Bacteria Few /HPF (0-FEW) Thyroid Stimulating Hormone (TSH) 0.183 uIU/mL (0.358-3.74) L Laboratory Tests 09/15/19 09:33 Laboratory Tests 09/15/19 09:33 ECHOCARDIOGRAM ECHOCARDIOGRAM <Conclusion> The left ventricular systolic function is normal. The Ejection Fraction is 55-60%. There is normal LV segmental wall motion. Transmitral Doppler flow pattern is Grade I-abnormal relaxation pattern. Trace tricuspid regurgitation. The PA pressure was estimated at 28 mmHg. There is no evidence of significant pericardial effusion. DATE: 01/15/19 1338 ASSESSMENT/PLAN ASSESSMENT/PLAN 1. Acute on chronic respiratory failure with AE COPD and a/c diastolic CHF, and possible PNA. Febrile. COVID pending 2. PAFIB; maintaining SR with PACs. On Eliquis for stroke prophylaxis. 3. Hypertension; elevated 4. Acute on chronic diastolic CHF 5. Mild troponin elevation; highest 0.05; most probably type II, demand ische natividad 6. BABATUNDE 7. Hyperthyroidism 8. Anemia Recommendations Cardizem for rate control On Eliquis for stroke prophylaxis. Lasix PRN Monitor H and H Await COVID Supportive care KRYSTAL THOMAS MD 09/17/19 0815: CARDIAC CONSULT ASSESSMENT/PLAN ASSESSMENT/PLAN Late entry for 09/16/19. The patient was seen and interviewed as well as examined at the bedside. The chart was reviewed. The case was discussed. Agree with the plan of care. FARSHAD SHERMAN APRN Sep 16, 2019 08:33 KRYSTAL THOMAS MD Sep 17, 2019 08:15
[2019-09-16] MEDS ORDERED: ELECTROLYTE (ICU) PROTOCOL. MC SCH (09:00)
[2019-09-16] MEDS ORDERED: LIDOCAINE (700MG/PATCH) PATCH. TD SCH (09:00)
[2019-09-16] MEDS: DOCUSATE SODIUM 100 MG CAPSULE. PO SCH (09:04)
[2019-09-16] MEDS: APIXABAN 5 MG TABLET. PO SCH (09:04)
[2019-09-16] MEDS: FAMOTIDINE 20 MG/2 ML VIAL IVP SCH (09:04)
[2019-09-16] MEDS: LACTOBACILLUS RHAMNOSUS GG 1 CAPSULE. PO SCH (09:04)
[2019-09-16] MEDS: BENZONATATE 100 MG CAPSULE. PO SCH (09:04)
[2019-09-16] MEDS: LOSARTAN POTASSIUM 50 MG TABLET. PO SCH (09:05)
[2019-09-16 10:55] LABS: BASO % 0 % (0-3); EOS % 0 % (0-3); HEMATOCRIT 26.5 % (39.0-53.0); HEMOGLOBIN 8.4 g/dL (13.0-17.5); LYMPH # 0.4 x10^3/uL (1.0-4.8); LYMPH % 8 % (24-48); MEAN CORPUSCULAR HEMOGLOBIN 25 pg (25-35); MEAN CORPUSCULAR HGB CONC 32 g/dL (31-37); MEAN CORPUSCULAR VOLUME 77 fL (79-100); MONO # 0.1 x10^3/uL (0.0-1.1); MONO % 2 % (0-9); NEUT # 4.7 x10^3/uL (1.8-7.7); NEUT % 90 % (31-73); PLATELET COUNT 155 x10^3/uL (140-400); RED BLOOD COUNT 3.43 x10^6/uL (4.30-5.70); RED CELL DISTRIBUTION WIDTH 16.9 % (11.5-14.5); WHITE BLOOD COUNT 5.2 x10^3/uL (4.0-11.0)
[2019-09-16 10:58] LABS: ALBUMIN 2.7 g/dL (3.4-5.0); ALBUMIN/GLOBULIN RATIO 0.7 (1.0-1.7); CREATININE 1.3 mg/dL (0.7-1.3); GFR 65.8; POTASSIUM 3.7 mmol/L (3.5-5.1); TOTAL BILIRUBIN 0.3 mg/dL (0.2-1.0); TOTAL PROTEIN 6.6 g/dL (6.4-8.2)
--- NOTE | 2019-09-16 11:18 | EKG ---
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
[2019-09-16 11:38] LABS: PROTHROMBIN TIME PATIENT 17.1 SEC (11.7-14.0)
--- NOTE | 2019-09-16 13:24 | PDOC ---
[employer] PROGRESS NOTE Chief Complaint Chief Complaint Respiratory failure Pneumonia Possible COVID-19 PAFIB Hypertension; elevated Chronic diastolic CHF Mild troponin elevation; highest 0.05; most probably type II, demand ischemia BABATUNDE Hyperthyroidism Fevers. Anemia History of Present Illness History of Present Illness 09/16/2019 Patient seen and examined Covid-19 test is negative Discussed with RN Discussed with case management Chart review Vitals/I&O Vitals/I&O: Vital Signs Date Time Temp Pulse Resp B/P (MAP) Pulse Ox O2 Delivery O2 Flow Rate FiO2 09/16/19 12:00 98.4 93 17 142/85 (104) 98 Nasal Cannula 4.0 98.4 I & O 09/15/19 09/15/19 09/16/19 15:00 23:00 07:00 Intake Total 3680 ml 100 ml 200 ml Output Total 300 ml 1000 ml 350 ml Balance 3380 ml -900 ml -150 ml Physical Exam General: Alert, Oriented X3, Cooperative, moderate distress Heart: Regular rate Lungs: Clear Abdomen: Soft Extremities: No cyanosis Labs Labs: Laboratory Tests Test 09/16/19 10:00 White Blood Count 5.2 x10^3/uL (4.0-11.0) Red Blood Count 3.43 x10^6/uL (4.30-5.70) Hemoglobin 8.4 g/dL (13.0-17.5) Hematocrit 26.5 % (39.0-53.0) Mean Corpuscular Volume 77 fL (79-100) Mean Corpuscular Hemoglobin 25 pg (25-35) Mean Corpuscular Hemoglobin Concent 32 g/dL (31-37) Red Cell Distribution Width 16.9 % (11.5-14.5) Platelet Count 155 x10^3/uL (140-400) Neutrophils (%) (Auto) 90 % (31-73) Lymphocytes (%) (Auto) 8 % (24-48) Monocytes (%) (Auto) 2 % (0-9) Eosinophils (%) (Auto) 0 % (0-3) Basophils (%) (Auto) 0 % (0-3) Neutrophils # (Auto) 4.7 x10^3/uL (1.8-7.7) Lymphocytes # (Auto) 0.4 x10^3/uL (1.0-4.8) Monocytes # (Auto) 0.1 x10^3/uL (0.0-1.1) Eosinophils # (Auto) 0.0 x10^3/uL (0.0-0.7) Basophils # (Auto) 0.0 x10^3/uL (0.0-0.2) Prothrombin Time 17.1 SEC (11.7-14.0) Prothromb Time International Ratio 1.4 (0.8-1.1) Activated Partial Thromboplast Time 40 SEC (24-38) Sodium Level 143 mmol/L (136-145) Potassium Level 3.7 mmol/L (3.5-5.1) Chloride Level 106 mmol/L (98-107) Carbon Dioxide Level 27 mmol/L (21-32) Anion Gap 10 (6-14) Blood Urea Nitrogen 19 mg/dL (8-26) Creatinine 1.3 mg/dL (0.7-1.3) Estimated GFR (Cockcroft-Gault) 65.8 BUN/Creatinine Ratio 15 (6-20) Glucose Level 142 mg/dL (70-99) Calcium Level 8.0 mg/dL (8.5-10.1) Magnesium Level 2.1 mg/dL (1.8-2.4) Total Bilirubin 0.3 mg/dL (0.2-1.0) Aspartate Amino Transf (AST/SGOT) 28 U/L (15-37) Alanine Aminotransferase (ALT/SGPT) 32 U/L (16-63) Alkaline Phosphatase 84 U/L (46-116) Troponin I Quantitative < 0.017 ng/mL (0.000-0.055) Total Protein 6.6 g/dL (6.4-8.2) Albumin 2.7 g/dL (3.4-5.0) Albumin/Globulin Ratio 0.7 (1.0-1.7) Assessment and Plan Assessmemt and Plan Problems Medical Problems: (1) COVID-19 Status: Acute Respiratory failure Pneumonia Possible COVID-19 PAFIB Hypertension; elevated Chronic diastolic CHF Mild troponin elevation; highest 0.05; most probably type II, demand ischemia BABATUNDE Hyperthyroidism Fevers. Anemia Plan Antibiotics O2 Doing duo nebs Home meds DVT prophylaxis Full code Appreciate subspecialist input Discharge when okay with subspecialist Comment Review of Relevant I have reviewed the following items lennie (where applicable) has been applied. Medications: Current Medications Medications (Trade) Dose Ordered Sig/Sim Route PRN Reason Start Time Stop Time Status Last Admin Dose Admin Digoxin (Lanoxin) 250 mcg 1600,1700,2200 IV 09/15/19 16:00 09/15/19 22:01 DC 09/15/19 22:06 Apixaban (Eliquis) 5 mg BID PO 09/15/19 21:00 09/16/19 09:04 Benzonatate (Tessalon Perle) 100 mg [id number] PO 09/15/19 21:00 09/16/19 09:04 Gabapentin (Neurontin) 300 mg HS PO 09/15/19 21:00 09/15/19 20:11 Lactobacillus Rhamnosus (Culturelle) 1 cap BID PO 09/15/19 21:00 09/16/19 09:04 Lidocaine (Lidoderm) 1 patch DAILY TD 09/16/19 09:00 09/16/19 09:05 Losartan Potassium (Cozaar) 50 mg BID PO 09/15/19 21:00 09/16/19 09:05 Quetiapine Fumarate (SEROquel) 100 mg QHS PO 09/15/19 21:00 09/15/19 20:11 Diltiazem HCl (Cardizem 24hr Cd) 360 mg DAILY PO 09/16/19 09:00 09/16/19 09:05 Terazosin HCl (Hytrin) 4 mg QHS PO 09/15/19 21:00 09/15/19 20:11 Famotidine (Pepcid Vial) 20 mg BID IVP 09/15/19 21:00 09/16/19 09:04 Methylprednisolone Sodium Succinate (SOLU-Medrol 40MG VIAL) 60 mg Q8HRS IV 09/15/19 19:00 09/16/19 05:49 Piperacillin Sod/ Tazobactam Sod 4.5 gm/Sodium Chloride 100 ml @ 200 mls/hr Q6HRS IV 09/15/19 19:00 09/16/19 12:15 Info (Icu Electrolyte Protocol) 1 ea DAILY MC 09/16/19 09:00 09/16/19 09:00 Docusate Sodium (Colace) 100 mg BID PO 09/15/19 21:00 09/16/19 09:04 Justicifation of Admission Dx: Justifications for Admission: Justification of Admission Dx: Yes Respiratory Failure: Severe Resp Distress VAMSI NOLASCO III DO Sep 16, 2019 13:24
--- NOTE | 2019-09-16 14:16 | NUR ---
SS following for discharge planning. SS reviewed pt chart and discussed with pt RN. Pt is from home and is currently requiring oxygen. Per RN, pt has home oxygen. Pt COVID19 negative. Possible discharge to home today. SS will continue to follow for discharge planning.
--- NOTE | 2019-09-16 14:35 | PDOC ---
PULMONARY PROGRESS NOTES Vitals Vital Signs Date Time Temp Pulse Resp B/P (MAP) Pulse Ox O2 Delivery O2 Flow Rate FiO2 09/16/19 12:00 98.4 93 17 142/85 (104) 98 Nasal Cannula 4.0 98.4 General: Alert, No acute distress HEENT: Other Lungs: Clear Cardiovascular: S1, S2 Abdomen: Soft, Non-tender Extremities: Other Labs Laboratory Tests Test 09/15/19 09:33 09/15/19 10:40 09/15/19 11:00 09/15/19 13:20 White Blood Count 9.6 x10^3/uL (4.0-11.0) Red Blood Count 3.48 x10^6/uL (4.30-5.70) Hemoglobin 9.1 g/dL (13.0-17.5) Hematocrit 27.1 % (39.0-53.0) Mean Corpuscular Volume 78 fL (79-100) Mean Corpuscular Hemoglobin 26 pg (25-35) Mean Corpuscular Hemoglobin Concent 34 g/dL (31-37) Red Cell Distribution Width 17.0 % (11.5-14.5) Platelet Count 174 x10^3/uL (140-400) Neutrophils (%) (Auto) 90 % (31-73) Lymphocytes (%) (Auto) 6 % (24-48) Monocytes (%) (Auto) 4 % (0-9) Eosinophils (%) (Auto) 0 % (0-3) Basophils (%) (Auto) 0 % (0-3) Neutrophils # (Auto) 8.6 x10^3/uL (1.8-7.7) Lymphocytes # (Auto) 0.6 x10^3/uL (1.0-4.8) Monocytes # (Auto) 0.4 x10^3/uL (0.0-1.1) Eosinophils # (Auto) 0.0 x10^3/uL (0.0-0.7) Basophils # (Auto) 0.0 x10^3/uL (0.0-0.2) Segmented Neutrophils % 81 % (35-66) Band Neutrophils % 7 % (0-9) Lymphocytes % 6 % (24-48) Monocytes % 6 % (0-10) Platelet Estimate Adequate (ADEQUATE) Prothrombin Time 14.6 SEC (11.7-14.0) Prothromb Time International Ratio 1.2 (0.8-1.1) Activated Partial Thromboplast Time 32 SEC (24-38) Sodium Level 146 mmol/L (136-145) Potassium Level 3.4 mmol/L (3.5-5.1) Chloride Level 107 mmol/L (98-107) Carbon Dioxide Level 28 mmol/L (21-32) Anion Gap 11 (6-14) Blood Urea Nitrogen 27 mg/dL (8-26) Creatinine 1.5 mg/dL (0.7-1.3) Estimated GFR (Cockcroft-Gault) 55.8 BUN/Creatinine Ratio 18 (6-20) Glucose Level 122 mg/dL (70-99) Lactic Acid Level 1.5 mmol/L (0.4-2.0) Calcium Level 7.9 mg/dL (8.5-10.1) Total Bilirubin 0.2 mg/dL (0.2-1.0) Aspartate Amino Transf (AST/SGOT) 31 U/L (15-37) Alanine Aminotransferase (ALT/SGPT) 36 U/L (16-63) Alkaline Phosphatase 97 U/L (46-116) Creatine Kinase 283 U/L (39-308) Troponin I Quantitative < 0.017 ng/mL (0.000-0.055) 0.058 ng/mL (0.000-0.055) CH-Cri-M-Type Natriuretic Peptide 45 pg/mL (0-124) Total Protein 6.9 g/dL (6.4-8.2) Albumin 3.1 g/dL (3.4-5.0) Albumin/Globulin Ratio 0.8 (1.0-1.7) Procalcitonin 0.32 ng/mL (0.00-0.10) O2 Saturation 89 % (92-99) Arterial Blood pH 7.41 (7.35-7.45) Arterial Blood pCO2 at Patient Temp 41 mmHg (35-46) Arterial Blood pO2 at Patient Temp 60 mmHg (65-108) Arterial Blood HCO3 25 mmol/L (21-28) Arterial Blood Base Excess 1 mmol/L (-3-3) Oxyhemoglobin 88.5 % Methemoglobin 0.7 % (0.0-1.9) Carbon Monoxide, Quantitative 0.3 % (0.0-1.9) FiO2 4 lpm nc Urine Collection Type Unknown Urine Color Straw Urine Clarity Clear Urine pH 6.0 (<5.0-8.0) Urine Specific [place] 1.015 (1.000-1.030) Urine Protein 30 mg/dL (NEG-TRACE) Urine Glucose (UA) Negative mg/dL (NEG) Urine Ketones (Stick) Negative mg/dL (NEG) Urine Blood Small (NEG) Urine Nitrite Negative (NEG) Urine Bilirubin Negative (NEG) Urine Urobilinogen Dipstick 0.2 mg/dL (0.2 mg/dL) Urine Leukocyte Esterase Negative (NEG) Urine RBC Occ /HPF (0-2) Urine WBC Occ /HPF (0-4) Urine Squamous Epithelial Cells Few /LPF Urine Bacteria Few /HPF (0-FEW) Thyroid Stimulating Hormone (TSH) 0.183 uIU/mL (0.358-3.74) Test 09/16/19 10:00 White Blood Count 5.2 x10^3/uL (4.0-11.0) Red Blood Count 3.43 x10^6/uL (4.30-5.70) Hemoglobin 8.4 g/dL (13.0-17.5) Hematocrit 26.5 % (39.0-53.0) Mean Corpuscular Volume 77 fL (79-100) Mean Corpuscular Hemoglobin 25 pg (25-35) Mean Corpuscular Hemoglobin Concent 32 g/dL (31-37) Red Cell Distribution Width 16.9 % (11.5-14.5) Platelet Count 155 x10^3/uL (140-400) Neutrophils (%) (Auto) 90 % (31-73) Lymphocytes (%) (Auto) 8 % (24-48) Monocytes (%) (Auto) 2 % (0-9) Eosinophils (%) (Auto) 0 % (0-3) Basophils (%) (Auto) 0 % (0-3) Neutrophils # (Auto) 4.7 x10^3/uL (1.8-7.7) Lymphocytes # (Auto) 0.4 x10^3/uL (1.0-4.8) Monocytes # (Auto) 0.1 x10^3/uL (0.0-1.1) Eosinophils # (Auto) 0.0 x10^3/uL (0.0-0.7) Basophils # (Auto) 0.0 x10^3/uL (0.0-0.2) Prothrombin Time 17.1 SEC (11.7-14.0) Prothromb Time International Ratio 1.4 (0.8-1.1) Activated Partial Thromboplast Time 40 SEC (24-38) Sodium Level 143 mmol/L (136-145) Potassium Level 3.7 mmol/L (3.5-5.1) Chloride Level 106 mmol/L (98-107) Carbon Dioxide Level 27 mmol/L (21-32) Anion Gap 10 (6-14) Blood Urea Nitrogen 19 mg/dL (8-26) Creatinine 1.3 mg/dL (0.7-1.3) Estimated GFR (Cockcroft-Gault) 65.8 BUN/Creatinine Ratio 15 (6-20) Glucose Level 142 mg/dL (70-99) Calcium Level 8.0 mg/dL (8.5-10.1) Magnesium Level 2.1 mg/dL (1.8-2.4) Total Bilirubin 0.3 mg/dL (0.2-1.0) Aspartate Amino Transf (AST/SGOT) 28 U/L (15-37) Alanine Aminotransferase (ALT/SGPT) 32 U/L (16-63) Alkaline Phosphatase 84 U/L (46-116) Troponin I Quantitative < 0.017 ng/mL (0.000-0.055) Total Protein 6.6 g/dL (6.4-8.2) Albumin 2.7 g/dL (3.4-5.0) Albumin/Globulin Ratio 0.7 (1.0-1.7) Laboratory Tests Test 09/16/19 10:00 White Blood Count 5.2 x10^3/uL (4.0-11.0) Red Blood Count 3.43 x10^6/uL (4.30-5.70) Hemoglobin 8.4 g/dL (13.0-17.5) Hematocrit 26.5 % (39.0-53.0) Mean Corpuscular Volume 77 fL (79-100) Mean Corpuscular Hemoglobin 25 pg (25-35) Mean Corpuscular Hemoglobin Concent 32 g/dL (31-37) Red Cell Distribution Width 16.9 % (11.5-14.5) Platelet Count 155 x10^3/uL (140-400) Neutrophils (%) (Auto) 90 % (31-73) Lymphocytes (%) (Auto) 8 % (24-48) Monocytes (%) (Auto) 2 % (0-9) Eosinophils (%) (Auto) 0 % (0-3) Basophils (%) (Auto) 0 % (0-3) Neutrophils # (Auto) 4.7 x10^3/uL (1.8-7.7) Lymphocytes # (Auto) 0.4 x10^3/uL (1.0-4.8) Monocytes # (Auto) 0.1 x10^3/uL (0.0-1.1) Eosinophils # (Auto) 0.0 x10^3/uL (0.0-0.7) Basophils # (Auto) 0.0 x10^3/uL (0.0-0.2) Prothrombin Time 17.1 SEC (11.7-14.0) Prothromb Time International Ratio 1.4 (0.8-1.1) Activated Partial Thromboplast Time 40 SEC (24-38) Sodium Level 143 mmol/L (136-145) Potassium Level 3.7 mmol/L (3.5-5.1) Chloride Level 106 mmol/L (98-107) Carbon Dioxide Level 27 mmol/L (21-32) Anion Gap 10 (6-14) Blood Urea Nitrogen 19 mg/dL (8-26) Creatinine 1.3 mg/dL (0.7-1.3) Estimated GFR (Cockcroft-Gault) 65.8 BUN/Creatinine Ratio 15 (6-20) Glucose Level 142 mg/dL (70-99) Calcium Level 8.0 mg/dL (8.5-10.1) Magnesium Level 2.1 mg/dL (1.8-2.4) Total Bilirubin 0.3 mg/dL (0.2-1.0) Aspartate Amino Transf (AST/SGOT) 28 U/L (15-37) Alanine Aminotransferase (ALT/SGPT) 32 U/L (16-63) Alkaline Phosphatase 84 U/L (46-116) Troponin I Quantitative < 0.017 ng/mL (0.000-0.055) Total Protein 6.6 g/dL (6.4-8.2) Albumin 2.7 g/dL (3.4-5.0) Albumin/Globulin Ratio 0.7 (1.0-1.7) Medications Active Scripts Medications Dose Route/Sig Max Daily Dose Days Date Category Cardizem Cd (Diltiazem Hcl) 360 Mg Cap.er.24h 1 Cap PO DAILY 01/28/19 Rx Eliquis (Apixaban) 5 Mg Tablet 5 Mg PO BID 60 01/28/19 Rx Lidocaine PATCH (Lidocaine) 1 Each Adh..patch 1 Patch TD DAILY 01/28/19 Rx Cozaar (Losartan Potassium) 50 Mg Tablet 50 Mg PO BID 01/28/19 Rx Amox Tr-K Clv 500-125 Mg Tab (Amoxicillin/Potassium Clav) 1 Each Tablet 1 Tab PO BID 01/28/19 Rx Culturelle (Lactobacillus Rhamnosus Gg) 1 Each Cap.sprink 1 Cap PO BID 30 01/16/19 Rx Guaifenesin Dm Syrup (Guaifenesin/Dextromethorphan) 5 Ml Syrup 10 Ml PO PRN Q6HRS PRN 10 01/16/19 Rx Benzonatate 100 Mg Capsule 100 Mg PO [id number] 30 01/16/19 Rx Pulmicort (Budesonide) 0.25 Mg/2 Ml Ampul.neb 1 Vial NEB BID 05/25/17 Reported Spiriva (Tiotropium [place]) 18 Mcg Cap.w.dev 1 Cap IH DAILY 05/25/17 Reported Proair Hfa Inhaler (Albuterol Sulfate) 8.5 Gm Hfa.aer.ad 1 Puff INH PRN Q6HRS PRN 05/25/17 Reported Brovana (Arformoterol Tartrate) 15 Mcg/2 Ml Vial.neb 1 Vial NEB BID 05/25/17 Reported Gabapentin (Gabapentin) 300 Mg Capsule 300 Mg PO HS 05/25/17 Reported Terazosin Hcl 2 Mg Capsule 4 Cap PO QHS 05/25/17 Reported Seroquel (Quetiapine Fumarate) 100 Mg Tablet 1 Tab PO QHS 05/25/17 Reported Ambien Cr (Zolpidem Tartrate) 12.5 Mg Tab.mphase 0.5 Tab PO QHS 05/25/17 Reported Impression . Full note dictated, patient continues to have fever, recommend repeating SARS-CoV-2 testing Continue current support, nebulized treatments If patient wishes to be discharged she must sign an AMA MORIS CRUMP MD Sep 16, 2019 14:35
--- NOTE | 2019-09-16 15:39 | NUR ---
AMA note. Patient expressed his wished to this nurse that he would like to leave. after evaluation by all doctors on case, Dr. Huizar was not ready for patient to be discharged and felt it necessary to retest for covid 19 after his intial [facility] came [facility] negative. Patient refused to have a swab done again and stated "You are not going to put anything down my nose again, i dont have it, and i want to go home." Dr. Huizar notified who said patient could leave AMA if he wanted. Patient was discussed with by this rn, that he could develope worsening symptoms, become extremely ill and even at home. He was also explained that he despite the negative test for covid 19, he could have had a false negative and could still have it, and he could spread it to his 95 yr old father whom he lives with. Patient still adamant that he will not be tested again and that he is leaving the hospital ama. Dr. huizar and dr. fox notified of patients decisions and was told to make sure patient knows he must self quarantine for 14 days at home.
[2019-09-16] MEDS ORDERED: IPRATRPIUM/ALBUTEROL 0.5/2.5MG 3 ML NEBU. NEB SCH (16:00)
--- NOTE | 2019-09-16 17:32 | CONS ---
DATE OF CONSULTATION: ATTENDING PHYSICIAN: Dr. Garcia. REASON FOR CONSULTATION: The patient seen in pulmonary consultation at the request of Dr. Garcia for hypoxemia, possible [id number]-[id number]-2. HISTORY OF PRESENT ILLNESS: The patient is a 69-year-old that went to the [facility] several days ago. He was seen and treated for pneumonia, given doxycycline and Augmentin. The patient was at home, became more short of air. He has some shaking chills and some sweating and diaphoresis. He did not check his temperature at home. He was re-seen at the [facility]. He has underlying chronic respiratory failure with 5 liters of oxygen supplementation, he was slightly more short of breath. The patient had increased oxygen demand. He was direct admission to [facility]. I was asked to see him in consultation. The patient currently is doing better and wishes to go home. He had a cough, mostly nonproductive. His VHOA-XPYMO-6 testing from the [facility] was negative. The patient states he has been at home, not exposed to anybody with COVID-19. He lives at home with his father. Denies fever, chills, nausea, vomiting, diarrhea at this time. PAST MEDICAL HISTORY: Previous chronic respiratory failure. He was hospitalized back at [facility] back in 12/2018. He has underlying COPD, E-cigarette use, chronic respiratory failure, hypertension. REVIEW OF SYSTEMS: As indicated above, otherwise, a 10-point system was reviewed and negative. SOCIAL HISTORY: Quit tobacco 4 years ago, worked at the [employer]. FAMILY HISTORY: No family history of lung disorders. PHYSICAL EXAMINATION: GENERAL: The patient was in the intensive care unit. VITAL SIGNS: Since admission, he has had a temperature of 102.7. He is currently on 3 liters of oxygen supplementation. HEENT: Eyes, the sclerae were nonicteric. NECK: Jugular venous distention was not elevated. No lymphadenopathy. CHEST: Full expansion. LUNGS: Adequate flow with no wheezes. CARDIOVASCULAR: Regular rate and rhythm with S1, S2, no S3. ABDOMEN: Soft, nontender, nondistended. EXTREMITIES: No clubbing, cyanosis or edema. LABORATORY DATA: Arterial blood gas: pH of 7.41, PaCO2 of 41, pO2 of 60. White count was normal. Hemoglobin and hematocrit were noted. He had a lymphopenia. Electrolytes were noted. Troponin was elevated. Albumin was 2.7. TSH was low. INR was 1.4. UA was noted. Chest x-ray revealed increased lung markings, possibly compatible with mild CHF. IMPRESSION: 1. Acute on chronic hypoxemic respiratory failure. 2. Abnormal chest x-ray revealing increased interstitial markings compatible with either congestive heart failure or interstitial pneumonia. 3. Fever, tested once for BZON-DEUWF-8, negative at the [facility]. 4. Mild elevation in troponin, suspect demand ischemia. 5. Hyperthyroidism. 6. Chronic anemia. 7. Paroxysmal atrial fibrillation. PLAN: 1. Recommend mild diuresis and repeat chest x-ray. 2. Repeat ZJEW-QYKJL-0, the patient instructed on the importance of repeating this test. He currently refuses. 3. Continue current support per Cardiology. 4. The patient refuses NEOB-NCCHO-0 and wishes to be discharged. I recommend that he signed AMA papers. I do appreciate the privilege in sharing in the patient's care. MORIS CRUMP MD DR: UGO/kita JOB#: [id number] / [id number]
--- NOTE | 2019-09-17 09:55 | DS ---
DATE OF DISCHARGE: 09/16/2019 ADMISSION DIAGNOSES: Fevers, abnormal chest x-ray suspicious for COVID-19, respiratory failure, end-stage chronic obstructive pulmonary disease. DISCHARGE DIAGNOSIS: The patient left against medical advice. CONSULTS: Cooper Huizar MD PROCEDURES: None. HOSPITAL COURSE: The patient is a pleasant middle-aged male, who presented with respiratory failure, pneumonia, and fevers and had abnormal chest x-ray. We were concerned that he could have COVID-19. He was admitted to the COVID-19 unit. We consulted Pulmonary. Surprisingly, his COVID-19 test came back negative. We gave him breathing treatments, oxygen and antibiotics. Yesterday, I saw and examined him, he was doing relatively well. Dr. Huizar saw him shortly after I did and wanted to repeat his COVID-19. The patient apparently refused and left against medical advice. VAMSI NOLASCO DO DR: JUSTINE/kita JOB#: [id number] / [id number]
== END 2019-09-16 16:45 | disposition left against medical advice (07) | DRG 177 ==
LOC: ER 09:22 → 1 WEST ICU 10:54 → ER 12:15
PROVIDERS: ADMIT Family Medicine; ATTEND Family Medicine
DX: J69.0 Pneumonitis due to inhalation of food and vomit (principal); J96.21 Acute and chronic respiratory failure with hypoxia; J44.0 Chronic obstructive pulmonary disease with (acute) lower respiratory infection; N17.9 Acute kidney failure, unspecified; I50.32 Chronic diastolic (congestive) heart failure; I11.0 Hypertensive heart disease with heart failure; D64.9 Anemia, unspecified; E05.90 Thyrotoxicosis, unspecified without thyrotoxic crisis or storm; F17.290 Nicotine dependence, other tobacco product, uncomplicated; F43.10 Post-traumatic stress disorder, unspecified; I48.0 Paroxysmal atrial fibrillation; J98.4 Other disorders of lung; Z20.828 Contact with and (suspected) exposure to other viral communicable diseases; Z82.49 Family history of ischemic heart disease and other diseases of the circulatory system; Z82.5 Family history of asthma and other chronic lower respiratory diseases; Z90.49 Acquired absence of other specified parts of digestive tract; F32.9 Major depressive disorder, single episode, unspecified; F41.9 Anxiety disorder, unspecified; M19.90 Unspecified osteoarthritis, unspecified site; Z53.29 Procedure and treatment not carried out because of patient's decision for other reasons
CPT/HCPCS: 36415; 36600; 71045; 80053; 81001; 82550; 82805; 83605; 83735; 83880; 84145; 84443; 84484; 85007; 85025; 85610; 85730; 87040; 93005; 96361; 96365; J1160; J2543; J2920; J3490; J7030; 99291-25; G0378

== ENCOUNTER → 2021-07-22 | Outpatient (CLI) | payer MEDICARE, OTHER ==
[2019-09-16 12:00] VITALS: BP 142/85
[~2021-07-22] MED LIST changes: +GADOTERATE 7.5 MMOL/15ML VIAL. IVP ONE
--- NOTE | 2021-07-23 09:12 | KCIC ---
MRI BRAIN WO+W, MRI FACE/NECK WITHOUT AND WITH IV CONTRAST- Date: 07/22/2021 12:35 PM Indication: VISION LOSS. No improvement in vision after right cataract removal 05/18. Technique: Multiplanar, multi-weighted MRI of the brain and brainstem was performed with and without intravenous contrast using an orbital protocol. This included high resolution imaging of the orbits a nd optic nerves in the coronal and axial planes. 18 cc Clariscan contrast was administered intraveno usly during the exam. Comparison: None. Findings: Motion artifact degrades image quality. Postsurgical changes of right lens replacement. The optic nerves are normal in size and signal intens ity, allowing for motion. No abnormal enhancement. No orbital mass. The extraocular muscles are esthela l. Meckel's cave is normal. The carotid artery flow voids are normal. The optic chiasm is normal. The suprasellar cistern is normal. No acute infarction. No acute or chronic hemorrhage. The ventricles are normal in size and configurat ion without evidence of hydrocephalus. Asymmetric prominence of the extra-axial space anterior to the right temporal lobe, probably a small arachnoid cyst. Mild scattered FLAIR hyperintensities in the s ubcortical and periventricular deep white matter, a nonspecific finding, most commonly seen with labor delivery rn tash small vessel ischemic disease. The scalp and calvarium are normal. The pituitary and sella are normal. No Chiari malformation. The v isualized upper cervical spine is normal. The visualized portions of the bilateral mastoid effusions. Normal flow voids in the carotid arteries and basilar artery indicate patency. IMPRESSION: 1. No orbital mass or abnormal enhancement. 2. Mild scattered FLAIR hyperintensities in the subcortical and periventricular deep white matter, a nonspecific finding, most commonly seen with chronic small vessel ischemic disease. Electronically signed by: Dilip Barrera MD (07/23/2021 9:10 AM) [facility]
--- NOTE | 2021-07-23 09:12 | KCIC ---
MRI BRAIN WO+W, MRI FACE/NECK WITHOUT AND WITH IV CONTRAST- Date: 07/22/2021 12:35 PM Indication: VISION LOSS. No improvement in vision after right cataract removal 05/18. Technique: Multiplanar, multi-weighted MRI of the brain and brainstem was performed with and without intravenous contrast using an orbital protocol. This included high resolution imaging of the orbits a nd optic nerves in the coronal and axial planes. 18 cc Clariscan contrast was administered intraveno usly during the exam. Comparison: None. Findings: Motion artifact degrades image quality. Postsurgical changes of right lens replacement. The optic nerves are normal in size and signal intens ity, allowing for motion. No abnormal enhancement. No orbital mass. The extraocular muscles are esthela l. Meckel's cave is normal. The carotid artery flow voids are normal. The optic chiasm is normal. The suprasellar cistern is normal. No acute infarction. No acute or chronic hemorrhage. The ventricles are normal in size and configurat ion without evidence of hydrocephalus. Asymmetric prominence of the extra-axial space anterior to the right temporal lobe, probably a small arachnoid cyst. 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 The scalp and calvarium are normal. The pituitary and sella are normal. No Chiari malformation. The v isualized upper cervical spine is normal. The visualized portions of the bilateral mastoid effusions. Normal flow voids in the carotid arteries and basilar artery indicate patency. IMPRESSION: 1. No orbital mass or abnormal enhancement. 2. Mild scattered FLAIR hyperintensities in the subcortical and periventricular deep white matter, a nonspecific finding, most commonly seen with chronic small vessel ischemic disease. Electronically signed by: Dilip Barrera MD (07/23/2021 9:10 AM) [facility]
== END ==
LOC: KCIC MRI 12:19
PROVIDERS: ATTEND Ophthalmology
DX: R90.82 White matter disease, unspecified (principal); H54.3 Unqualified visual loss, both eyes; Z98.890 Other specified postprocedural states
CPT/HCPCS: 70543; 70553; 82565; A9575